=== PATIENT | male | born 1965 | race Caucasian/White ===

== ENCOUNTER → 2016-10-23 | Day surgery (SDC) | payer OTHER, MEDICARE ==
[~2016-10-23] MED LIST: BUPIVACAINE HCL PF 0.75% 30 ML VIAL ONE; BUPIVACAINE/EPINEPHRINE 0.5% PF 30 ML VIAL ONE; LACTATED RINGER'S 1000 ML INJ 1,000 ML ONE; LIDOCAINE 1.5%/EPINEPHrine 1:200,000 PF SOLN 30 ML AMP ONE; MIDAZOLAM HCL 5 MG/ML VIAL (1 ML) ONE; MORPHINE SULFATE 4 MG/ML INJ ONE; PROPOFOL 200 MG/20 ML AMP IV ONE; ceFAZolin 2 GM PREMIX 50 ML ONE; oxyCODONE/ACETAMINOPHEN 5 MG/325 MG TAB ONE
--- NOTE | 2016-10-25 20:51 | MP ---
cc: SHRUTHI OWEN DATE OF SURGERY 10/23/2016 PREOPERATIVE DIAGNOSIS Right distal triceps tendon rupture POSTOPERATIVE DIAGNOSIS Right distal triceps tendon rupture PROCEDURE Right triceps tendon repair. ANESTHESIA General SURGEON Mabel Owen MD HYPO SPLASHER SURGEON Patti RAYO ESTIMATED BLOOD LOSS 50 mL DRAINS None SPECIMEN None. COMPLICATIONS None known. INDICATION Ron Magaña is a 50-year-old male with persistent symptomatology secondary to a distal biceps tendon rupture with pain and weakness. He presents now for surgical repair. Prior MRI shows a portion of the triceps remained intact, but a large portion was disrupted and retracted several centimeters. Risks, benefits were thoroughly discussed and a detailed informed consent was obtained. The customer assistant, Sinan Calvin, is advanced registered nurse practitioner. His skill set was medically necessary for the performance of the operation. He retracted vital structures, helped with the reduction of the repair, was medically necessary for the performance of the repair. PROCEDURE IN DETAIL The patient was brought to the operating room. He was placed under general anesthetic, turned to lateral decubitus position right shoulder up. The right upper extremity draped and prepped in usual sterile fashion. We used an arm board so that the arm could bend across and bend to 90 degrees. We made a direct posterior approach after the time-out was completed. We went through the deep fatty tissue layer and identified the triceps tendon rupture. There was quite a bit of scar tissue and some of the scar tissue where the tendon was trying to repair itself was resected and then we came back to the good quality tendon that could be advanced to the bone, then we thoroughly cleaned the footprint for the repair and had bleeding bones and had good quality tissue and did a whip stitch with three #5 fiber wires and then used a drill hole technique to pull the triceps into position and then used suture anchor to finalize the repair. The arm could gravity flex to 100 degrees, was slightly tighter than a normal triceps and this was consistent with the chronicity of the tear. We had good hemostasis. We placed Marcaine in the wound and the proceeded to close in layers of absorbable suture. Steri-Strips on the skin. Sterile dressing applied, long-arm posterior mold splint applied. The patient was awaken, returned to recovery room in stable condition. MD KEN Morales/ /9:34 AM /8:42 PM
== END | disposition home or self-care (01) ==
LOC: ESDC 06:07
PROVIDERS: ATTEND Orthopaedic Surgery Sports Medicine
DX: S46.311A Strain of muscle, fascia and tendon of triceps, right arm, initial encounter (principal)
CPT/HCPCS: 01710; 01991; 24342; 64415; C1713; J0690; J2250; J2270; J3010; J7120